=== PATIENT | female | born 1955 | race Caucasian/White ===

== ENCOUNTER → 2023-01-03 | Outpatient (CLI) | payer OTHER ==
[2023-01-03 15:10] LABS: INR 1.83 (0.85-1.15); PROTHROMBIN TIME 19.3 SEC (9.6-11.6)
[2023-01-03 15:11] LABS: PARTIAL THROMBOPLASTIN TIME 38.4 SEC (26.3-35.5)
== END | disposition home or self-care (01) ==
LOC: LAB 13:44
DX: I48.19 Other persistent atrial fibrillation (principal)
CPT/HCPCS: 36415; 85610; 85730

== ENCOUNTER → 2023-01-10 | Outpatient (CLI) | payer MEDICARE, OTHER ==
[2023-01-10 10:42] LABS: INR 2.67 (0.85-1.15); PROTHROMBIN TIME 27.5 SEC (9.6-11.6)
== END | disposition home or self-care (01) ==
LOC: LAB 09:10
DX: I48.19 Other persistent atrial fibrillation (principal)
CPT/HCPCS: 36415; 85610; 85730

== ENCOUNTER → 2023-01-16 | Outpatient (CLI) | payer MEDICARE ==
[2023-01-16 10:04] LABS: INR 2.37 (0.85-1.15); PROTHROMBIN TIME 24.6 SEC (9.6-11.6)
[2023-01-16 10:05] LABS: PARTIAL THROMBOPLASTIN TIME 46.4 SEC (26.3-35.5)
== END | disposition home or self-care (01) ==
LOC: LAB 08:22
DX: I48.19 Other persistent atrial fibrillation (principal)
CPT/HCPCS: 36415; 85610; 85730

== ENCOUNTER → 2023-01-23 | Outpatient (CLI) | payer MEDICARE ==
[2023-01-23 10:01] LABS: INR 3.05 (0.85-1.15); PROTHROMBIN TIME 31.2 SEC (9.6-11.6)
[2023-01-23 10:03] LABS: PARTIAL THROMBOPLASTIN TIME 47.2 SEC (26.3-35.5)
== END | disposition home or self-care (01) ==
LOC: LAB 08:47
PROVIDERS: ATTEND Student in an Organized Health Care Education/Training Program
DX: I48.19 Other persistent atrial fibrillation (principal)
CPT/HCPCS: 36415; 85610; 85730

== ENCOUNTER 2023-01-26 15:51 | Emergency (ER) | payer MEDICARE ==
[~2023-01-26] VITALS: Ht 165.1 cm; Wt 87.1 kg
[2023-01-26 17:26] LABS: BASOPHILS % (AUTO) 0.2 % (0.0-5.0); LYMPHOCYTES % (AUTO) 4.2 % (21.0-51.0); MEAN CORPUSCULAR HEMOGLOBIN 28.4 pg (27.0-33.0); MEAN CORPUSCULAR HGB CONC 33.6 g/dL (32.0-36.0); MEAN CORPUSCULAR VOLUME 84.4 fL (79-99); MONOCYTES % (AUTO) 4.5 % (3.0-13.0); NEUTROPHILS % (AUTO) 90.6 % (40.0-77.0); PLATELET COUNT (AUTO) 269 K/uL (130-400); RED BLOOD CELL COUNT(AUTO) 4.62 MIL/uL (4.00-5.50); RED CELL DISTRIBUTION WIDTH 15.1 % (11.0-15.5); WHITE BLOOD COUNT (AUTO) 14.6 K/uL (4.8-10.8)
[2023-01-26 17:53] LABS: INR 1.65 (0.85-1.15); PROTHROMBIN TIME 17.5 SEC (9.6-11.6)
[2023-01-26] MEDS ORDERED: ONDANSETRON 4MG INJ ONE (18:05)
[2023-01-26 18:13] LABS: ALBUMIN 4.2 g/dL (3.5-5.0); CREATININE 0.8 mg/dL (0.5-1.5); TOTAL PROTEIN, SERUM 8.7 g/dL (6.0-8.3)
[2023-01-26 18:15] LABS: POTASSIUM 3.4 mmol/L (3.5-5.1)
[2023-01-26] MEDS ORDERED: ONDANSETRON 4MG INJ IVP ONE (18:30)
[2023-01-26] MEDS ORDERED: PROPOFOL 1000 MG/100 ML 100 ML IV SCH (18:30)
[2023-01-26] MEDS ORDERED: PHYTONADIONE 10 MG in 0.9%NACL 50ML 50 ML IVPB SCH (18:30)
[2023-01-26] MEDS ORDERED: PROPOFOL 1000 MG/100 ML 100 ML IV ONE (18:32)
[2023-01-26] MEDS ORDERED: FENTANYL 2500MCG+NS 250ML IV.SOLN IV SCH (19:00)
[2023-01-26 19:18] LABS: APPEARANCE,URINE CLEAR (CLEAR); BILIRUBIN,URINE NEGATIVE (NEGATIVE); COLOR,URINE YELLOW (YELLOW); GLUCOSE, URINE (UA) NEGATIVE (NEGATIVE); KETONES,URINE 5 mg/dL (NEGATIVE); LEUKOCYTE ESTERASE ,URINE NEGATIVE Leu/uL (NEGATIVE); NITRATE,URINE NEGATIVE (NEGATIVE); PH,URINE 5.5 (5.0-8.0); PROTEIN,URINE 30 mg/dL (NEGATIVE); UROBILINOGEN,URINE 0.2 mg/dL (0.2-1.0)
[2023-01-26 19:22] LABS: MUCUS,URINE RARE LPF (None Seen); SQUAMOUS EPITHELIAL CELL,UR RARE /HPF (0-2)
[2023-01-26] MEDS ORDERED: FENTANYL 2500MCG+NS 250ML 250 ML IV ONE (19:23)
[2023-01-26 19:28] LABS: ABG BASE EXCESS -1.8 mmol/L (-2.0-3.0); ABG HCO3 22.2 mmol/L (21.0-28.0); ABG PCO2 35 mmHg (32-45)
[2023-01-26] MEDS ORDERED: MIDAZOLAM 50MG-0.9% NS 50ML 50 ML BAG IV SCH (19:30)
[2023-01-26 19:51] VITALS: BP 182/83
[2023-01-26] MEDS ORDERED: FENTANYL 2500MCG+NS 250ML 250 ML IV SCH (20:00)
[2023-01-26] MEDS ORDERED: MIDAZOLAM 100MG-0.9% NS 100ML 100 ML IV SCH (20:00)
== END 2023-01-26 20:01 | disposition short-term general hospital (02) ==
LOC: EDH 15:51
DX: S06.5XAA Traumatic subdural hemorrhage with loss of consciousness status unknown, initial encounter (principal); I10 Essential (primary) hypertension; E11.9 Type 2 diabetes mellitus without complications; E03.9 Hypothyroidism, unspecified; E78.00 Pure hypercholesterolemia, unspecified; Z88.0 Allergy status to penicillin; Z98.890 Other specified postprocedural states; V89.2XXA Person injured in unspecified motor-vehicle accident, traffic, initial encounter; Y93.I9 Activity, other involving external motion; Y92.488 Other paved roadways as the place of occurrence of the external cause; Y99.8 Other external cause status
CPT/HCPCS: 99285; 82435; 82947; 84132; 84295; 80053; 82803; 85025; 85610; 85018; 83605; 81001; 36415; 71045; 70450; 72125; 96374; 96375; 51702; 93005; 94002; 31500; 36600; J3010; J3430; J2704; J2405; A9900